=== PATIENT | male | born 1980 | race Hispanic/Latino ===

== ENCOUNTER 2023-02-02 21:58 | Emergency (ER) | payer OTHER ==
[~2023-02-02] VITALS: Ht 170.2 cm; Wt 120.2 kg
[2023-02-03] MEDS ORDERED: ULTRAM 50MG50 MG PO (01:23)
[2023-02-03] MEDS ORDERED: PREDNISONE20 MG PO (01:23)
[2023-02-03] MEDS ORDERED: VENTOLIN HFA18 GM INH (01:23)
[2023-02-03 01:27] VITALS: BP 196/117
== END 2023-02-03 01:26 | disposition home or self-care (01) ==
LOC: ER 22:23
DX: R05.9 Cough, unspecified (principal); M47.816 Spondylosis without myelopathy or radiculopathy, lumbar region; R03.0 Elevated blood-pressure reading, without diagnosis of hypertension
CPT/HCPCS: 71046; 72100; 99283